=== PATIENT | female | born 2000 | race Caucasian/White ===

== ENCOUNTER 2023-09-02 19:53 | Inpatient (IN) | payer BC, MEDICAID ==
[2023-09-02] MEDS: Lactated Ringer's 1,000 ML IV SCH (22:10)
[2023-09-02] MEDS: hydrALAZINE 20 MG/ML VIAL ONE (22:57)
[2023-09-02 23:23] VITALS: BMI 42.5
[2023-09-02 23:25] LABS: Hematocrit 36.2 % (34.9-44.5); Hemoglobin 12.8 g/dL (12.0-15.5); Mean Corpuscular HGB CONC 35.4 g/dL (32.0-36.0); Mean Corpuscular Hemoglobin 30.3 pg (27.0-33.0); Mean Corpuscular Volume 85.8 fl (81.6-98.3); Mean Platelet Volume 12.2 fl (7.4-10.4); Platelet Count 212 10x3/uL (150-450); RBC Distribution Width 13.5 % (11.5-14.5); Red Blood Cell (RBC) Count 4.22 10x6/uL (3.90-5.03); White Blood Cell (WBC) Count 12.8 10x3/uL (3.5-10.5)
[2023-09-02] MEDS: Labetalol HCl 100 MG/20 ML VIAL ONE (23:30)
[2023-09-02 23:39] LABS: ALT (SGPT) 14 U/L (8-55); AST (SGOT) 22 U/L (5-34); Albumin 2.6 g/dL (3.5-5.0); Alkaline Phosphatase 125 U/L (40-110); Anion Gap 14 mmol/L (10-20); BUN (Urea Nitrogen) 6 mg/dL (7.0-18.7); Bilirubin, Total 0.3 mg/dL (0.2-1.2); Calc. Creatinine Clearance 287 mL/min (70-130); Calcium 8.5 mg/dL (7.8-10.44); Carbon Dioxide 18 mmol/L (22-29); Chloride 109 mmol/L (98-107); Estimated GFR 128; Glucose 81 mg/dL (70-105); Potassium 4.2 mmol/L (3.5-5.1); Protein, Total 5.6 g/dL (6.0-8.3); Sodium 137 mmol/L (136-145)
[2023-09-02] MEDS ORDERED: fentaNYL 50 mcg/mL 1 mL Vial SLOW IVP PRN (23:39)
[2023-09-02] MEDS ORDERED: Tranexamic Acid 1,000 MG/10 ML VIAL IVP PRN (23:40)
[2023-09-02] MEDS ORDERED: Lidocaine 1% (PF) 30 ML VIAL SC PRN (23:45)
[2023-09-02] MEDS ORDERED: Misoprostol 200 MCG TAB RC PRN (23:45)
[2023-09-02] MEDS ORDERED: Ondansetron PF 4 MG/2 ML Vial IVP PRN (23:45)
[2023-09-02] MEDS ORDERED: Oxytocin 30 units/NS 500 ML 500 ML IVPB SCH (23:45)
[2023-09-02] MEDS ORDERED: hydrALAZINE 20 MG/ML VIAL SLOW IVP PRN ×2 (23:45)
[2023-09-02] MEDS ORDERED: Acetaminophen 500 MG TAB PO PRN (23:45)
[2023-09-02] MEDS ORDERED: Carboprost 250 MCG/ML AMP IM PRN (23:45)
[2023-09-02] MEDS ORDERED: Ibuprofen 800 MG TAB PO PRN (23:45)
[2023-09-02] MEDS ORDERED: Promethazine HCl 25 MG/ML VIAL IM PRN (23:45)
[2023-09-02 23:58] LABS: Syphilis Antibody Nonreactive (Nonreactive); Syphilis Antibody Index 0.06 S/CO (<1.00 Non-Reactive)
[2023-09-03] LABS: HBsAg Index 0.22 S/CO (0-0.99); Hep B Surf Ag - L&D Non-Reactive S/CO (NonReactive)
[2023-09-03] MEDS: Magnesium Sulfate 20 gm/500 ml 4 GM/100 ML BAG IVPB SCH (00:05)
[2023-09-03] MEDS: Magnesium Sulfate 20 gm/500 ml 20 GM/500 ML BAG IVPB SCH (00:07)
[2023-09-03] MEDS: Labetalol HCl 100 MG/20 ML VIAL SLOW IVP PRN ×3 (01:57→07:51)
[2023-09-03] MEDS: Oxytocin 30 units/NS 500 ML 500 ML IV SCH (03:21)
[2023-09-03] MEDS ORDERED: Lorazepam 2 MG/ML VIAL SLOW IVP PRN (07:58)
[2023-09-03] MEDS ORDERED: Calcium Gluc 4.6 MEQ/10 ML (100 MG/ML) SLOW IVP PRN (07:58)
[2023-09-03] MEDS ORDERED: NIFEdipine 10 MG CAP PO PRN ×2 (07:58)
[2023-09-03] MEDS: fentaNYL/Ropivacaine Epidural 100 ML ONE (08:46)
[2023-09-03] MEDS ORDERED: Lactated Ringer's 500 ML IV PRN (09:38)
[2023-09-03] MEDS ORDERED: diphenhydrAMINE 50 MG/ML VIAL IVP PRN (09:38)
[2023-09-03] MEDS ORDERED: Moisturizing Cream (Eucerin) 113 GM JAR TOP PRN (09:38)
[2023-09-03] MEDS ORDERED: ePHEDrine Sulfate 50 MG/10 ML VIAL SLOW IVP PRN (09:38)
[2023-09-03] MEDS ORDERED: Acetaminophen 325 MG TAB PO PRN (09:38)
[2023-09-03] MEDS ORDERED: Ondansetron PF 4 MG/2 ML Vial IVP PRN (09:38)
[2023-09-03] MEDS ORDERED: Promethazine HCl 25 MG/ML VIAL IM PRN (09:38)
[2023-09-03] MEDS ORDERED: Naloxone HCl 0.4 mg/ml Vial IVP PRN ×2 (09:38)
[2023-09-03] MEDS ORDERED: Communication Order-Pharmacy FS SCH (09:45)
[2023-09-03] MEDS ORDERED: fentaNYL 2 mcg/Ropivacaine 0.2% Epidural 100 ML CADD EPIDURAL SCH (09:45)
[2023-09-03] MEDS ORDERED: hydrALAZINE 20 MG/ML VIAL SLOW IVP PRN (12:48)
[2023-09-03] MEDS ORDERED: Milk Of Magnesia 30 ML UDCUP PO PRN (12:48)
[2023-09-03] MEDS ORDERED: Lanolin Ointment 7 GM TUBE TOP PRN (12:48)
[2023-09-03] MEDS ORDERED: Benzocaine-Menthol 82.5 ML CAN TOP PRN (12:48)
[2023-09-03] MEDS ORDERED: diphenhydrAMINE 25 MG CAP PO PRN (12:48)
[2023-09-03] MEDS ORDERED: Bisacodyl 10 MG SUPP PR PRN (12:48)
[2023-09-03] MEDS ORDERED: Preparation H Ointment 28 GM TUBE PR PRN (12:48)
[2023-09-03] MEDS ORDERED: NIFEdipine XL 30 MG ER.TAB PO SCH (13:30)
[2023-09-03] MEDS: NIFEdipine XL 30 MG ER.TAB PO SCH (13:32)
[2023-09-03] MEDS: Misoprostol 100 MCG TAB VAG SCH (18:57)
[2023-09-03] MEDS: Ibuprofen 800 MG TAB PO SCH (18:58)
[2023-09-03] MEDS: Ferrous Sulfate 325 MG TAB PO SCH (18:58)
[2023-09-03] MEDS ORDERED: traMADol HCl 50 MG TAB PO PRN (19:21)
[2023-09-03] MEDS: Docusate 100 MG CAP PO SCH (21:36)
[2023-09-04] MEDS: Prenatal Vitamin 1 TAB PO SCH (08:59)
[2023-09-04] MEDS: NIFEdipine XL 30 MG ER.TAB PO SCH (08:59)
[2023-09-05] MEDS: Boostrix 0.5 ML (Tdap) VIAL (>/=7 yrs of age) IM ONE (08:30)
[2023-09-05 11:31] VITALS: BP 147/73; TEMP 98.5
== END 2023-09-05 11:55 | disposition home or self-care (01) | DRG 806 ==
LOC: CSHLD 19:53 → CSHPP 09-04 13:40
PROVIDERS: ADMIT Obstetrics & Gynecology; ATTEND Obstetrics & Gynecology
PROC: 10E0XZZ Delivery of Products of Conception, External Approach (ICD-10-PCS; principal; 2023-09-03)
PROC: 0KQM0ZZ Repair Perineum Muscle, Open Approach (ICD-10-PCS; 2023-09-03)
DX: O14.14 Severe pre-eclampsia complicating childbirth (principal); O36.0930 Maternal care for other rhesus isoimmunization, third trimester, not applicable or unspecified; Z37.0 Single live birth; O24.420 Gestational diabetes mellitus in childbirth, diet controlled; Z3A.37 37 weeks gestation of pregnancy; O70.1 Second degree perineal laceration during delivery
CPT/HCPCS: 36415; 51702; 80053; 85027; 85461; 86780; 86850; 86900; 86901; 87340; 90384; 96372; J0360; J2590; J3475; J7120